=== PATIENT | female | born 1995 | race Caucasian/White ===

== ENCOUNTER 2016-03-22 23:17 | Emergency (ER) | payer BC, OTHER ==
--- NOTE | 2016-03-22 23:50 | ED ---
General Adult HPI - General Chief complaint: Psychiatric Symptoms Stated complaint: Mental Health Time Seen by Provider: 03/22/16 23:27 Source: patient, police, RN notes reviewed Mode of arrival: ambulatory Limitations: no limitations - History of Present Illness Initial comments: Patient is a pleasant 20-year-old female presenting to the emergency Department with depression and suicidal threats. Patient states she is always depressed and always has suicidal thoughts. Patient did not have a plan today. Patient has been under more stress recently. Patient does have a history of self-harm in the past. No alcohol use. Occasional marijuana use. No homicidal thoughts. No hallucinations. - Related Data Previous Rx's Medication Instructions Recorded Citalopram Hydrobromide [CeleXA] 10 mg PO DAILY #30 tab 01/09/16 Nicotine 21Mg/24Hr Patch [Habitrol] 1 patch TRANSDERM DAILY #30 patch 01/09/16 QUEtiapine [SEROquel] 50 mg PO HS #30 tab 01/09/16 traZODone HCL [Desyrel] 50 mg PO HS #30 tab 01/09/16 Allergies Allergy/AdvReac Type Severity Reaction Status Date / Time latex Allergy Unknown Verified 01/07/16 05:24 Review of Systems ROS Statement: Those systems with pertinent positive or pertinent negative responses have been documented in the HPI. ROS Other: All systems not noted in ROS Statement are negative. Constitutional: Denies: fever Eyes: Denies: eye pain ENT: Denies: ear pain Respiratory: Denies: cough Cardiovascular: Denies: chest pain Endocrine: Denies: fatigue Gastrointestinal: Denies: abdominal pain Genitourinary: Denies: dysuria Musculoskeletal: Denies: back pain Skin: Denies: rash Neurological: Denies: headache Psychiatric: Reports: depression, suicidal thoughts. Denies: auditory hallucinations, visual hallucinations, homicidal thoughts Past Medical History Past Medical History: No Reported History History of Any Multi-Drug Resistant Organisms: None Reported Past Surgical History: Section Past Psychological History: ADD/ADHD, Anxiety, Bipolar, Depression Smoking Status: Current every day smoker Past Alcohol Use History: None Reported Additional Past Alcohol Use History / Comment(s): Patient is a smoker of one and half packs of cigarettes since she was 11 years of age. She denies any alcohol or street drug use. Other than marijuana. She uses marijuana on a daily basis. She has a son that is one year old. She is currently living with her mother. Past Drug Use History: Marijuana - Past Family History Father Additional Family Medical History / Comment(s): Father is alive at age 57 with history of bipolar. Mother Additional Family Medical History / Comment(s): Mother is alive with no major medical problems. Brother(s) Additional Family Medical History / Comment(s): She has 2 brothers with no major medical problems. Patient does not have any sisters. General Exam Limitations: no limitations General appearance: alert, in no apparent distress Head exam: Present: normocephalic Eye exam: Present: normal appearance, EOMI ENT exam: Present: normal oropharynx Neck exam: Present: normal inspection Respiratory exam: Present: normal lung sounds bilaterally Cardiovascular Exam: Present: regular rate, normal rhythm GI/Abdominal exam: Present: soft. Absent: tenderness Extremities exam: Present: normal inspection Neurological exam: Present: alert Psychiatric exam: Present: depressed Skin exam: Present: normal color Course Vital Signs 03/22/16 23:21 Temperature 96.9 F L Pulse Rate 79 Respiratory 16 Rate Blood Pressure 128/82 O2 Sat by Pulse 99 Oximetry Medical Decision Making - Medical Decision Making Patient seen by mental health services who recommends discharge. Patient denies suicidal ideation and does contract for safety. Patient will go to her sister's. Disposition Clinical Impression: Depression Disposition: HOME SELF-CARE Condition: Stable Instructions: Suicide Prevention for Adults (ED), Depression (ED) Additional Instructions: Please follow-up with mental health services as directed. Return for thoughts of harming yourself, worsening symptoms or other concerns. Referrals: None,Stated [Primary Care Provider] - 1-2 days Domingo Harrison MD [STAFF PHYSICIAN] - 1-2 days Yosvany Wick DO [Medical Doctor] - 1-2 days
[2016-03-23 02:23] VITALS: BP 110/72; PULSE 78; RESP 20; TEMP 97.5
== END 2016-03-23 02:26 | disposition home or self-care (01) ==
LOC: EC 23:17
DX: F31.9 Bipolar disorder, unspecified (principal); F12.90 Cannabis use, unspecified, uncomplicated; F17.210 Nicotine dependence, cigarettes, uncomplicated; Z91.040 Latex allergy status; Z79.899 Other long term (current) drug therapy
CPT/HCPCS: 82075; 99283

== ENCOUNTER 2016-04-06 11:30 | Emergency (ER) | payer OTHER ==
[2016-04-06 11:34] VITALS: BP 147/84; PULSE 65; RESP 20; TEMP 97.8
[2016-04-06] MEDS ORDERED: AZITHROMYCIN 250 MG TAB PO STA (12:03)
[2016-04-06] MEDS ORDERED: cefTRIAXone 250 MG VIAL IM STA (12:03)
--- NOTE | 2016-04-06 12:22 | ED ---
Female Urogenital HPI - General Chief complaint: Urogenital Stated complaint: std screeening Time Seen by Provider: 04/06/16 11:47 Source: patient Mode of arrival: ambulatory Limitations: no limitations - History of Present Illness Initial comments: 20-year-old female presents emergency Department with chief complaint STD exposure. Patient states that her symptoms other tested positive for chlamydia. Patient is a symptomatically wants treatment. Patient offers no complaints. Denies any chance . - Related Data Previous Rx's Medication Instructions Recorded Citalopram Hydrobromide [CeleXA] 10 mg PO DAILY #30 tab 01/09/16 Nicotine 21Mg/24Hr Patch [Habitrol] 1 patch TRANSDERM DAILY #30 patch 01/09/16 QUEtiapine [SEROquel] 50 mg PO HS #30 tab 01/09/16 traZODone HCL [Desyrel] 50 mg PO HS #30 tab 01/09/16 Allergies Allergy/AdvReac Type Severity Reaction Status Date / Time latex Allergy Unknown Verified 04/06/16 11:34 Review of Systems ROS Statement: Those systems with pertinent positive or pertinent negative responses have been documented in the HPI. ROS Other: All systems not noted in ROS Statement are negative. Past Medical History Past Medical History: No Reported History History of Any Multi-Drug Resistant Organisms: None Reported Past Surgical History: Section Past Psychological History: ADD/ADHD, Anxiety, Bipolar, Depression Smoking Status: Current every day smoker Past Alcohol Use History: None Reported Additional Past Alcohol Use History / Comment(s): Patient is a smoker of one and half packs of cigarettes since she was 11 years of age. She denies any alcohol or street drug use. Other than marijuana. She uses marijuana on a daily basis. She has a son that is one year old. She is currently living with her mother. Past Drug Use History: Marijuana - Past Family History Father Additional Family Medical History / Comment(s): Father is alive at age 57 with history of bipolar. Mother Additional Family Medical History / Comment(s): Mother is alive with no major medical problems. Brother(s) Additional Family Medical History / Comment(s): She has 2 brothers with no major medical problems. Patient does not have any sisters. General Exam Limitations: no limitations General appearance: alert, in no apparent distress Head exam: Present: atraumatic, normocephalic, normal inspection Respiratory exam: Present: normal lung sounds bilaterally. Absent: respiratory distress, wheezes, rales, rhonchi, stridor Cardiovascular Exam: Present: regular rate, normal rhythm, normal heart sounds. Absent: systolic murmur, diastolic murmur, rubs, gallop, clicks GI/Abdominal exam: Present: soft, normal bowel sounds. Absent: distended, tenderness, guarding, rebound, rigid Course Vital Signs 04/06/16 11:32 Temperature 97.8 F Pulse Rate 65 Respiratory 20 Rate Blood Pressure 147/84 O2 Sat by Pulse 98 Oximetry Disposition Clinical Impression: Exposure to chlamydia Disposition: HOME SELF-CARE Condition: Stable Instructions: Chlamydia (ED) Additional Instructions: Please return to the Emergency Department if symptoms worsen or any other concerns. Referrals: None,Stated [Primary Care Provider] - 1-2 days Time of Disposition: 12:22
== END 2016-04-06 12:20 | disposition home or self-care (01) ==
LOC: EC 11:30
DX: Z20.2 Contact with and (suspected) exposure to infections with a predominantly sexual mode of transmission (principal)
CPT/HCPCS: 99283; 96372; J0696

== ENCOUNTER → 2016-11-17 | Outpatient (CLI) | payer OTHER | END | disposition home or self-care (01) | LOC: LABWHC1 14:56 | PROVIDERS: ATTEND Nurse Practitioner | DX: F31.81 Bipolar II disorder (principal) | CPT/HCPCS: 36415; 80183 ==

== ENCOUNTER 2017-03-10 19:04 | Emergency (ER) | payer OTHER ==
--- NOTE | 2017-03-10 20:19 | ED ---
General Adult HPI - General Chief complaint: Skin/Abscess/Foreign Body Stated complaint: skin problems/left arm Time Seen by Provider: 03/10/17 19:59 Source: patient, RN notes reviewed Mode of arrival: ambulatory Limitations: no limitations - History of Present Illness Initial comments: This is a 21-year-old female who presents to the emergency department with chief complaint of skin problem on the left arm. Patient states that she has had a rash on her upper left arm for the past week. She denies any new soaps, laundry detergents, fragrances or medications. Patient states that the rash has been very itchy and she has been scratching continuously. She has not tried to use any medications or topical creams. Denies any other location of rash. 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 Denies fever, chills, chest pain, shortness of breath, abdominal pain, nausea or vomiting, constipation or diarrhea, dysuria or hematuria, numbness or tingling, headache or vision changes. - Related Data Previous Rx's Medication Instructions Recorded Citalopram Hydrobromide [CeleXA] 10 mg PO DAILY #30 tab 01/09/16 Nicotine 21Mg/24Hr Patch [Habitrol] 1 patch TRANSDERM DAILY #30 patch 01/09/16 QUEtiapine [SEROquel] 50 mg PO HS #30 tab 01/09/16 traZODone HCL [Desyrel] 50 mg PO HS #30 tab 01/09/16 Allergies Allergy/AdvReac Type Severity Reaction Status Date / Time latex Allergy Unknown Verified 03/10/17 19:26 Review of Systems ROS Statement: Those systems with pertinent positive or pertinent negative responses have been documented in the HPI. ROS Other: All systems not noted in ROS Statement are negative. Past Medical History Past Medical History: No Reported History History of Any Multi-Drug Resistant Organisms: None Reported Past Surgical History: Section Past Psychological History: ADD/ADHD, Anxiety, Bipolar, Depression Smoking Status: Current every day smoker Past Alcohol Use History: None Reported Past Drug Use History: Marijuana - Past Family History Father Additional Family Medical History / Comment(s): Father is alive at age 57 with history of bipolar. Mother Additional Family Medical History / Comment(s): Mother is alive with no major medical problems. Brother(s) Additional Family Medical History / Comment(s): She has 2 brothers with no major medical problems. Patient does not have any sisters. General Exam - General Exam Comments Initial Comments: General: Awake and alert, well-developed; in no apparent distress. HEENT: Head atraumatic, normocephalic. Pupils are equal, round and reactive to light. Extraocular movements intact. Neck: Supple. Normal ROM. Cardiovascular: Regular rate and rhythm. No murmurs, rubs or gallops. Chest symmetrical. Respiratory: Lungs clear to auscultation bilaterally. No wheezes, rales or rhonchi. Normal respiratory effort with no use of accessory muscles. Musculoskeletal: Normal ROM, no tenderness bilateral upper and lower extremities. Ambulating normally. Skin: [place], warm and dry. Small circular maculopapular, erythematous rash at the upper left arm with overlying excoriations. Neurological: Alert and oriented x3. CN II-XII grossly intact. Speech is fluent and answers are appropriate. No focal neuro deficits. Psychiatric: Normal mood and affect. No overt signs of depression or anxiety noted. Limitations: no limitations Course Vital Signs 03/10/17 19:22 Temperature 97.1 F L Pulse Rate 70 Respiratory 18 Rate Blood Pressure 120/78 O2 Sat by Pulse 98 Oximetry Medical Decision Making - Medical Decision Making This is a 21-year-old female who presents for evaluation of a rash. Patient has a dermatitis on the left upper arm. She has not tried using any medications or topical creams. I educated patient that most of the time source of rash is unknown. Recommended a topical steroid and patient states that she is unable to afford a prescription. I did tell her that hydrocortisone is over- the-counter but is low potency. Patient states that she would like to try the over the counter topical steroid. She requests a work note. She will be discharged home at this time. She is in no acute distress. Questions answered. Disposition Clinical Impression: Contact dermatitis Disposition: HOME SELF-CARE Condition: Good Instructions: Dermatitis (ED) Additional Instructions: Apply hydrocortisone cream twice a day to the rash. Avoid hot showers. Please follow up with primary care provider within 1-2 days. Return to emergency department if symptoms should worsen or any concerns arise. Referrals: None,Stated [Primary Care Provider] - 1-2 days Manjula Contreras MD [STAFF PHYSICIAN] - 1-2 days Time of Disposition: :19
[2017-03-11 23:12] VITALS: BP 120/78; PULSE 70; RESP 18; TEMP 97.1
== END 2017-03-10 20:24 | disposition home or self-care (01) ==
LOC: EC 19:04
DX: L25.9 Unspecified contact dermatitis, unspecified cause (principal); F17.200 Nicotine dependence, unspecified, uncomplicated; Z91.040 Latex allergy status
CPT/HCPCS: 99282

== ENCOUNTER 2017-09-03 01:09 | Emergency (ER) | payer OTHER ==
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
--- NOTE | 2017-09-03 02:42 | XR ---
EXAMINATION TYPE: XR chest 2V DATE OF EXAM: 09/03/2017 COMPARISON: NONE HISTORY: Chest pain TECHNIQUE: Frontal and lateral views of the chest are obtained. FINDINGS: Heart and mediastinum are normal. Lungs are clear. Diaphragm is normal. Bony thorax appear s intact. IMPRESSION: Normal chest. Minimal pectus excavatum chest deformity.
[2017-09-03 03:10] VITALS: BP 96/50; PULSE 57; RESP 18; TEMP 98
== END 2017-09-03 03:09 | disposition home or self-care (01) ==
LOC: EC 01:09
DX: R07.9 Chest pain, unspecified (principal); M79.602 Pain in left arm; F17.200 Nicotine dependence, unspecified, uncomplicated; Z91.040 Latex allergy status
CPT/HCPCS: 71046; 99285

== ENCOUNTER 2023-10-15 04:06 | Emergency (ER) | payer OTHER ==
[2023-10-15] MEDS ORDERED: SODIUM CHLORIDE 0.9% 1,000 ML BAG ONE (04:40)
[2023-10-15] MEDS ORDERED: MORPHINE SULFATE 4 MG/ML SYRINGE ONE ×2 (04:45→05:40)
[2023-10-15] MEDS ORDERED: AMPICILLIN-SULBACTAM 3 GM VIAL ONE (05:40)
[2023-10-15] MEDS ORDERED: SODIUM CHLORIDE 0.9% 100 ML BAG IV ONE (05:40)
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
--- NOTE | 2023-11-23 10:51 | XR ---
Patient: Latonya Gutierrez L Ordering Physician: Unknown, Unknown ID: [id number] Phone, Pager: Phon e: N/A Pager: N/A : 1995 Age/Gender: 28Y, F Primary Location: N/A Procedure: XR knee complete LT Study Date: 10/15/2023 5:25:00 AM EXAMINATION TYPE: XR knee complete LT DATE OF EXAM: 11/01/2023 10:58 AM CLINICAL INDICATION: Pain COMPARISON: None. TECHNIQUE: XR knee complete LT; examined in Frontal, lateral and oblique projections. FINDINGS: No evidence of any acute osseous pathology, soft tissue swelling, or joint effusion is no gareth. IMPRESSION: No acute osseous pathology.
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
== END 2023-10-15 20:01 | disposition home or self-care (01) ==
LOC: EC 04:06
CPT/HCPCS: 70450; 70486; 71046; 72125; 80053; 83605; 84484; 84702; 85025; 85610; 85730; 96361; 96365; 96375; 96376; 99285